=== PATIENT | male | born 1975 | race Caucasian/White ===

== ENCOUNTER 2016-08-17 04:26 | Emergency (ER) | payer MEDICARE, MEDICAID ==
[~2016-08-17] VITALS: Ht 167.6 cm; Wt 66.4 kg
[~2016-08-17 04:26] MED LIST: AMOX500T2 PO; GABA-500 PO; NAPR500T PO
[2016-08-17 04:34] VITALS: BP 132/88; PULSE 106; RESP 16; O2SAT 99
[2016-08-17] MEDS ORDERED: Ketorolac 30 mg/mL 2 mL Inj IM ONE (05:25)
--- NOTE | 2016-08-17 06:13 | ED.REPORT ---
HPI-Trauma Minor / Fall Date of Service Aug 17, 2016 ED Provider: Doc,Ed MD Nursing Notes Stated Complaint: RIB PAIN/DISCOMFORT Chief Complaint: Multiple Trauma/Fall Allergies: Coded Allergies: sertraline (Verified Allergy, Unknown, 08/17/16) Scheduled Amoxicillin (Amoxicillin) 500 Mg Tablet 500 MG PO TID Gabapentin (Gabapentin) 100 Mg Capsule 200 MG PO TID Scheduled PRN Naproxen (Naprosyn) 500 Mg Tablet 500 MG PO BID PRN PRN For Pain General Time Seen by MD: 06:12 Past Medical History Past Medical History Reports: Diabetes mellitus Past Surgical History none reported Smoking History Current Every Day Smoker Social History Drug Use: Denies drug use Ambulatory Status Independent Physical Exam Initial Vital Signs Vital Signs (First) Date Time Temp Pulse Resp B/P Pulse Ox O2 Delivery O2 Flow Rate FiO2 08/17/16 04:34 36.2 106 16 132/88 99 Room Air Discharge & Departure Disposition: LEFT WITHOUT BEING SEEN Discharge Condition Condition: Improved Referrals: NOPCP (PCP) Meghna Bishop MD Aug 17, 2016 06:13
--- NOTE | 2016-08-17 06:15 | PCM.EDPN ---
ED Note Date of Service Aug 17, 2016 Pt complaining of rib pain. Agitated and unable to sit still. Polysubstance suspected. Left prior to being seen Xrays done, no rib fractures His partner is currently an in patient in this hospital. Nursing staff has told him the results of negative xray this am Meghna Bishop MD Aug 17, 2016 06:15
--- NOTE | 2016-08-17 08:28 | DRSVH ---
PROCEDURE: X-RAY RIGHT RIBS, TWO VIEWS ([id number]) INDICATIONS: pain right lateral ribs s/p thrown into wood table TECHNIQUE: 2 views of the right ribs were acquired. COMPARISON: None. FINDINGS: Surgical changes and devices: None. Bones and chest wall: No fractures or dislocations. No suspicious bony lesions. Overlying soft tis sues appear unremarkable. Lungs and pleura: The visualized lung appears clear. No pleural effusions or pneumothorax are visib le. IMPRESSION: No displaced right rib fractures. Dictated by: Derek Willis [facility] Interpreted: José Miguel Nash MD on 08/17/2016 at 8:27 Transcribed by: ROSEMARY on 08/17/2016 at 8:27 Approved by: José Miguel Nash M.D. on 08/17/2016 at 9:58
== END 2016-08-17 06:11 | disposition left against medical advice (07) ==
LOC: SED 04:26
DX: R07.9 Chest pain, unspecified (principal)

== ENCOUNTER 2016-08-19 10:24 | Emergency (ER) | payer MEDICAID, MEDICARE ==
[~2016-08-19] VITALS: Ht 167.6 cm; Wt 68.2 kg
[2016-08-19 10:38] VITALS: BP 136/86; PULSE 106; RESP 14; O2SAT 97
--- NOTE | 2016-08-19 11:45 | ED.REPORT ---
HPI-Extremity Problem Lower Date of Service Aug 19, 2016 ED Provider: Adam Jacobsen PA-C Gibson is a 40-year-old male with a history of diabetic neuropathy presents with chief complaint of bilateral leg pain. He describes pain in his hamstrings as "stiff, aching, burning, on fire" it radiates to his knees and calves. Denies significant pain in his feet though he admits to history of diabetic neuropathy which is usually characterized by numbness and tingling. Reports that he has had this pain off and on over the last 2 years with this plan very constant and severe for the last 2 days. Admits history of diabetes which is not managed as well as treatment for MRSA infection on his face 2 weeks ago, as well as rib pain due to an injury 2 weeks ago. Denies back pain, fever, chills, malaise, bowel/bladder dysfunction, saddle anesthesia. 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 Denies history of cancer, back surgery, injury. Nursing Notes Stated Complaint: PAIN IN BOTH LEGS Chief Complaint: Extremity Trauma Nursing Notes Reviewed: Yes Allergies: Coded Allergies: sertraline (Verified Allergy, Unknown, 08/17/16) Scheduled Amoxicillin (Amoxicillin) 500 Mg Tablet 500 MG PO TID Gabapentin (Gabapentin) 100 Mg Capsule 200 MG PO TID Scheduled PRN Naproxen (Naprosyn) 500 Mg Tablet 500 MG PO BID PRN PRN For Pain General Time Seen by MD: 10:55 Chief Complaint Other (bilateral leg pain) Past Medical History Past Medical History Reports: Diabetes mellitus Past Surgical History none reported Smoking History Current Every Day Smoker Social History Drug Use: Denies drug use Ambulatory Status Independent Review of Systems General: Denies fever, chills, malaise. HEENT: Denies congestion, headache, sore throat. Respiratory: Denies dyspnea, cough, shortness of breath, wheezing. Cardiovascular: Denies chest pain, palpitations. Gastrointestinal: Denies vomiting, diarrhea, abdominal pain. Genitourinary: Denies frequency, urgency, dysuria, hematuria. Otherwise as noted in HPI. Physical Exam General: Well appearing, well developed, well nourished, no acute distress. Head: Atraumatic, normocephalic. Eyes: No scleral icterus or injection. No discharge. Vision grossly intact. ENT: Voice clear, hearing grossly intact. Respiratory: Regular rate and rhythm. Breath sounds present, clear to auscultation and equal bilaterally. Cardiovascular: Tachycardic at 112 bpm and regular rhythm, without murmur, gallop or rub. No pedal edema. Legs: Relatively thin but otherwise normal to inspection with normal skin color , no lesions no edema. DP and PT pulses appreciated and equal bilaterally, brisk capillary refill. Tender to palpation diffusely over the thighs and knees and calves. Skin: Warm and dry. Neurological: Wide gait, normal heel to toe gait, poor heel raise, toe raise. Patellar reflexes absent bilaterally. Reduced sensation in toes bilaterally. Otherwise nonfocal Psychological: Alert and oriented. Speech appropriate, linear and logical. Behavior appropriate. Initial Vital Signs Vital Signs (First) Date Time Temp Pulse Resp B/P Pulse Ox O2 Delivery O2 Flow Rate FiO2 08/19/16 10:38 36.6 106 14 136/86 97 Room Air Initial VS: Reviewed, Vital signs abnormal (tachycardic) Interpretation & Diagnostics Lab Results Interpretation Result Diagram: 08/19/16 1151 08/19/16 1151 Test 08/19/16 11:51 White Blood Count 6.7th/mm3 (3.8-10.1) Red Blood Count 5.04mil/mm3 (4.40-5.80) Hemoglobin 15.6g/dL (13.8-17.2) Hematocrit 44.4% (41.0-50.0) Mean Corpuscular Volume 88.1fL (81-100) Mean Corpuscular Hemoglobin 31.0pg (27.0-35.0) Mean Corpuscular Hemoglobin Concent 35.1% (32.0-37.0) Red Cell Distribution Width 11.9% (12.3-15.4) Platelet Count 280bil/L (150-400) Neutrophils (%) (Auto) 54.5% (40-74) Lymphocytes (%) (Auto) 34.1% (14-46) Monocytes (%) (Auto) 8.8% (4-12) Eosinophils (%) (Auto) 2.2% (0-5) Basophils (%) (Auto) 0.3% (0-3) Sodium Level 138mEq/L (134-144) Potassium Level 4.4mEq/L (3.5-5.2) Chloride Level 97mEq/L (97-108) Carbon Dioxide Level 26mmol/L (18-29) Blood Urea Nitrogen 12mg/dL (6-24) Creatinine 0.59mg/dL (0.76-1.27) Estimat Glomerular Filtration Rate 162mL/min (>59) Glucose Level 259mg/dL (60-99) Calcium Level 9.4mg/dL (8.5-10.1) Total Bilirubin 0.4mg/dL (0.0-1.2) Aspartate Amino Transf (AST/SGOT) 18U/L (0-50) Alanine Aminotransferase (ALT/SGPT) 17U/L (0-44) Alkaline Phosphatase 200U/L (25-150) Total Creatine Kinase 234U/L (21-232) Total Protein 7.5g/dL (6.4-8.4) Albumin 4.3g/dL (3.4-5.0) Hold Malik Top Tube Received (Received) Re-Eval/Medical Decision Med Decision/Clinical Course 40-year-old male with a history of diabetes and diabetic neuropathy presents with chief complaint bilateral hamstring pain that radiates to his knees and calves. He states the pain is burning and constant, relieved mildly by massage. He reports his expenses pain off and on for 2 years but has been worse and constant for the last 2 days. No complaint of back pain and history is otherwise reassuring regarding cauda equina syndrome or epidural abscess. Admitted to history of methamphetamine use sometimes daily but denies IV drug use. Physical exam reveals a wide gait but a normal heel to toe gait. Patient states he cannot raise up on his toes or his heels. Patient is very tender diffusely over his thighs and knees and calves. Negative for signs of peripheral vascular disease, spinous process tenderness, fever. I discussed this case with Dr. Ernie Escobar who suggested CBC CMP CPK with an eye towards rhabdomyolysis. I discussed this plan with the patient who reported that he does not like having blood drawn but was amenable. Blood work was drawn. Patient was somewhat difficult in that he at one point left the department and returned, he also wondered and had to be asked several times to return to seat. Patient was given acetaminophen and ibuprofen for analgesia. He expressed disappointment that was given opiate pain medication, refuses to give a urine sample and departed. After departure we received his blood work back, which revealed elevated glucose , alkaline phosphatase and total creatinine kinase of 234. I find is reassuring for rhabdomyolysis. At this point my suspicion he has a serious, emergent condition is low. Discharge & Departure Departure Notes I interviewed and examined this patient prior to ordering labs considering epidural abscess, cauda equina syndrome, rhabdomyolysis, neuralgia. I offered the patient ibuprofen and acetaminophen for analgesia. Nurses tell me that he was disappointed not to receive stronger pain medication, that he refused to provide a urine sample and that he eloped before I received his blood tests back , reassessed or provided discharge instructions. At this point my suspicion that the patient has a serious, emergent condition is low, and I believe he is competent to make his own decisions. Impression: Primary Impression: Leg pain, bilateral Referrals: [facility] Provider for APC: Edvin Klein MD, Seth PA-C Aug 19, 2016 11:45
[2016-08-19 11:59] LABS: BASOPHILS % (AUTO) 0.3 % (0-3); EOSINOPHILS % (AUTO) 2.2 % (0-5); MONOCYTES % (AUTO) 8.8 % (4-12); Mean Corpuscular Volume 88.1 fL (81-100); NEUTROPHILS % (AUTO) 54.5 % (40-74); Platelet Count 280 bil/L (150-400)
[2016-08-19 12:35] VITALS: BP 136/86; PULSE 106; RESP 14; O2SAT 97
== END 2016-08-19 12:45 ==
LOC: SED 10:24
DX: M79.661 Pain in right lower leg (principal); M79.662 Pain in left lower leg; E11.40 Type 2 diabetes mellitus with diabetic neuropathy, unspecified; F17.200 Nicotine dependence, unspecified, uncomplicated; Z88.8 Allergy status to other drugs, medicaments and biological substances